=== PATIENT | male | born 1965 | race Caucasian/White ===

== ENCOUNTER 2018-11-19 11:32 | Inpatient (IN) | payer OTHER ==
[~2018-11-19 11:32] MED LIST: ETOMIDATE 20 MG INJ
[2018-11-19] MEDS ORDERED: niCARdipine-NS 0.1MG/ML DRIP 200 ML IV (11:50)
[2018-11-19 11:51] LABS: ADD MAN DIFF? NO
[2018-11-19 11:52] LABS: WHITE BLOOD COUNT 7.6 10^3/ul (4.8-10.8)
[2018-11-19 11:52] LABS: BASOPHILS % 0.3 % (0.0-2.0); EOSINOPHILS # 0.2 10^3/ul (0.0-0.5); EOSINOPHILS % 2.2 % (0.0-7.0); HEMATOCRIT 46.2 % (42.0-52.0); HEMOGLOBIN 15.6 g/dl (14.0-18.0); LYMPHOCYTES # 1.3 10^3/ul (0.8-2.9); LYMPHOCYTES % 16.9 % (15.0-51.0); MEAN CORPUSCULAR HEMOGLOBIN 30.8 pg (29.0-33.0); MEAN CORPUSCULAR HGB CONC 33.8 g/dl (32.0-37.0); MEAN CORPUSCULAR VOLUME 91.1 fl (82.0-101.0); MEAN PLATELET VOLUME 10.2 fl (7.4-10.4); MONOCYTE # 0.3 10^3/ul (0.3-0.9); MONOCYTES % 4.1 % (0.0-11.0); NEUTROPHIL # 5.8 10^3/ul (1.6-7.5); NEUTROPHILS % 75.8 % (39.0-77.0); PLATELET COUNT 269 10^3/UL (140-415); RED BLOOD COUNT 5.07 10^6/ul (4.70-6.10); RED CELL DISTRIBUTION WIDTH 12.4 % (11.5-14.5)
[2018-11-19] MEDS ORDERED: SOD CHLORIDE 0.9% IV (11:54)
[2018-11-19] MEDS ORDERED: NICARDIPINE IV (11:54)
[2018-11-19 12:02] LABS: HEMOGLOBIN A1C 5.5 % (0-5.9)
[2018-11-19] MEDS: niCARdipine 25 MG in SOD CHLORIDE 0.9% 240 ML IV ×2 (12:04→15:20)
[2018-11-19 12:10] LABS: ALANINE AMINOTRANSFERASE 19 IU/L (13-69); ALBUMIN 5.4 g/dl (3.3-4.9); ALBUMIN/GLOBULIN RATIO 1.63; ALKALINE PHOSPHATASE 78 IU/L (42-121); ANION GAP 12 (5-13); ASPARTATE AMINO TRANSFERASE 33 IU/L (15-46); BILIRUBIN,INDIRECT 0.5 mg/dl (0-1.1); BILIRUBIN,TOTAL 0.5 mg/dl (0.2-1.3); BLOOD UREA NITROGEN 12 mg/dl (7-20); CALCIUM 10.2 mg/dl (8.4-10.2); CARBON DIOXIDE 25 mmol/L (21-31); CHLORIDE 104 mmol/L (97-110); CHOL/HDL RATIO 4.2 RATIO; CHOLESTEROL 161 mg/dl (100-200); CREATINE KINASE 87 IU/L (23-200); CREATININE 0.81 mg/dl (0.61-1.24); ETHANOL < 10.0 mg/dl (0-0); Estimated GFR > 60 mL/min (>60); GLUCOSE 144 mg/dl (70-220); HDL CHOLESTEROL 38 mg/dl (28-71); LDL CHOLESTEROL,CALCULATED 83 mg/dl; POTASSIUM 4.1 mmol/L (3.5-5.1); SODIUM 141 mmol/L (135-144); TOTAL PROTEIN 8.7 g/dl (6.1-8.1); TRIGLYCERIDES 201 mg/dl (0-149)
[2018-11-19 12:14] LABS: INR 1.05; PROTIME 13.8 Sec (11.9-14.9); PT RATIO 1.1
[2018-11-19 12:15] LABS: PARTIAL THROMBOPLASTIN TIME 30.6 Sec (23.0-35.0)
[2018-11-19 12:22] LABS: CK INDEX 0.6; CK-MB 0.55 ng/ml (0.0-2.4); TROPONIN-I < 0.012 ng/ml (0.000-0.120)
[2018-11-19] MEDS ORDERED: MIDAZOLAM 1 MG/ML 2 ML INJ (12:41)
[2018-11-19] MEDS ORDERED: FENTAnyl 50 MCG/ML VIAL (12:41)
[2018-11-19] MEDS: FENTAnyl 50 MCG/ML VIAL IV (13:01)
[2018-11-19] MEDS: SOD CHLORIDE 0.9% 100 ML (13:01)
[2018-11-19] MEDS: IODIXANOL LOCM 100 ML BTL (13:01)
[2018-11-19] MEDS: MIDAZOLAM 1 MG/ML 2 ML INJ IV (13:01)
[2018-11-19] MEDS: ROCURONIUM 50 MG INJ IV (13:02)
[2018-11-19] MEDS: PROPOFOL 100 ML IV ×2 (13:05→21:00)
[2018-11-19] MEDS: ETOMIDATE 20 MG INJ IV (13:10)
[2018-11-19 13:23] LABS: AADO2 Arterial 404.2 mmHg (7.0-24.0); Allen Test ACCEPTAB; Arterial Base Excess 1.4 mmol/L (-3.0-3); Arterial Blood Gas Oxygen Sat 99.3 mmHG (95.0-98.0); Arterial COHb 1.7 % (0.0-3.0); Arterial Fraction of Oxyhgb 97.2 % (93.0-99.0); Arterial MetHb 0.4 % (0.0-1.5); Arterial pCO2 32.6 mmhg (35-45); MODE VENT - AC; Site Right Radial
[2018-11-19] MEDS ORDERED: ACETAMINOPHEN 325 MG TAB PO (13:30)
[2018-11-19] MEDS ORDERED: ONDANSETRON 4 MG INJ IV (13:30)
[2018-11-19] MEDS ORDERED: morphine 2 MG INJ IV (13:30)
[2018-11-19] MEDS ORDERED: ALBUTEROL/IPRATROPIUM (NEB) 3 ML AMP HHN (13:30)
[2018-11-19] MEDS ORDERED: LORAZEPAM 2 MG INJ IV (13:30)
[2018-11-19] MEDS ORDERED: NACL 0.9% 3 ML SYG IV (13:30)
[2018-11-19] MEDS ORDERED: NITROGLYCERIN (SL) 0.4 MG TAB SL (13:30)
[2018-11-19] MEDS ORDERED: DOCUSATE SODIUM 100 MG CAP PO (13:30)
[2018-11-19 13:49] LABS: INR 1.04; PROTIME 13.7 Sec (11.9-14.9); PT RATIO 1.1
[2018-11-19 13:54] LABS: HEMOGLOBIN A1C 5.5 % (0-5.9)
[2018-11-19] MEDS: SOD CHLORIDE 0.45% 1,000 ML IV (14:59)
[2018-11-19 15:18] LABS: FREE T4 (FREE THYROXINE) 0.98 ng/dl (0.64-1.79)
[2018-11-19] MEDS: niCARdipine-NS 0.1MG/ML DRIP 200 ML IV ×2 (16:16→23:07)
[2018-11-19] MEDS: FAMOTIDINE 20 MG INJ IV (20:36)
[2018-11-19] MEDS: NICOTINE (21 MG/24 HR) PATCH TRANSDERM (20:37)
[2018-11-19] MEDS: DOCUSATE SODIUM 100 MG CAP PO (21:00)
[2018-11-20] MEDS: SOD CHLORIDE 0.45% 1,000 ML IV ×2 (02:15→16:26)
[2018-11-20] MEDS: PROPOFOL 100 ML IV ×2 (03:15→21:00)
[2018-11-20] MEDS: niCARdipine-NS 0.1MG/ML DRIP 200 ML IV (04:09)
[2018-11-20] MEDS: niCARdipine 50 MG in SOD CHLORIDE 0.9% 480 ML IV ×4 (04:51→18:29)
[2018-11-20 05:29] LABS: ADD MAN DIFF? NO
[2018-11-20 05:37] LABS: BASOPHILS % 0.1 % (0.0-2.0); EOSINOPHILS # 0.2 10^3/ul (0.0-0.5); EOSINOPHILS % 1.1 % (0.0-7.0); HEMATOCRIT 43.2 % (42.0-52.0); HEMOGLOBIN 14.7 g/dl (14.0-18.0); LYMPHOCYTES # 1.7 10^3/ul (0.8-2.9); LYMPHOCYTES % 10.8 % (15.0-51.0); MEAN CORPUSCULAR HEMOGLOBIN 31.2 pg (29.0-33.0); MEAN CORPUSCULAR VOLUME 91.7 fl (82.0-101.0); MEAN PLATELET VOLUME 10.2 fl (7.4-10.4); MONOCYTE # 0.9 10^3/ul (0.3-0.9); MONOCYTES % 5.8 % (0.0-11.0); NEUTROPHIL # 12.4 10^3/ul (1.6-7.5); NEUTROPHILS % 81.8 % (39.0-77.0); PLATELET COUNT 271 10^3/UL (140-415); RED BLOOD COUNT 4.71 10^6/ul (4.70-6.10); RED CELL DISTRIBUTION WIDTH 12.6 % (11.5-14.5)
[2018-11-20 05:37] LABS: WHITE BLOOD COUNT 15.2 10^3/ul (4.8-10.8)
[2018-11-20 06:04] LABS: ADD UMIC YES; UR ASCORBIC ACID NEGATIVE (NEGATIVE); UR BILIRUBIN (Dip) NEGATIVE (NEGATIVE); UR BLOOD (Dip) 1+ mg/dL (NEGATIVE); UR CLARITY CLEAR (CLEAR); UR COLOR YELLOW (YELLOW); UR GLUCOSE (Dip) 1+ mg/dL (NEGATIVE); UR KETONES (Dip) 1+ mg/dL (NEGATIVE); UR LEUKOCYTE ESTERASE (Dip) NEGATIVE Leu/ul (NEGATIVE); UR MUCUS FEW /HPF (NONE SEEN); UR NITRITE (Dip) NEGATIVE (NEGATIVE); UR RBC 7 /HPF (0-5); UR SPECIFIC GRAVITY (Dip) 1.028 (1.003-1.030); UR TOTAL PROTEIN (Dip) NEGATIVE (NEGATIVE); UR UROBILINOGEN (Dip) NEGATIVE (NEGATIVE); UR WBC 2 /HPF (0-5)
[2018-11-20 06:12] LABS: ANION GAP 6 (5-13); BLOOD UREA NITROGEN 14 mg/dl (7-20); CALCIUM 9.3 mg/dl (8.4-10.2); CARBON DIOXIDE 26 mmol/L (21-31); CHLORIDE 107 mmol/L (97-110); CREATININE 0.89 mg/dl (0.61-1.24); Estimated GFR > 60 mL/min (>60); GLUCOSE 117 mg/dl (70-220); MAGNESIUM 1.8 mg/dl (1.7-2.5); PHOSPHORUS 3.3 mg/dl (2.5-4.9); POTASSIUM 3.4 mmol/L (3.5-5.1); SODIUM 139 mmol/L (135-144)
[2018-11-20 06:18] LABS: CHOL/HDL RATIO 4.8 RATIO; HDL CHOLESTEROL 29 mg/dl (28-71); LDL CHOLESTEROL,CALCULATED 60 mg/dl; TRIGLYCERIDES 253 mg/dl (0-149)
[2018-11-20 06:18] LABS: CHOLESTEROL 140 mg/dl (100-200)
[2018-11-20 06:32] LABS: AMPHETAMINE/METHAMPHETAMINE NEGATIVE (NEGATIVE); BARBITURATES NEGATIVE (NEGATIVE)
[2018-11-20 06:33] LABS: BENZODIAZEPINES POSITIVE (NEGATIVE); CANNABINOIDS NEGATIVE (NEGATIVE); COCAINE NEGATIVE (NEGATIVE); OPIATES NEGATIVE (NEGATIVE)
[2018-11-20 06:40] LABS: THYROID STIMULATING HORMONE 0.214 MIU/L (0.465-4.680)
[2018-11-20 06:52] LABS: HEMOGLOBIN A1C 5.4 % (0-5.9)
[2018-11-20] MEDS: DOCUSATE SODIUM 100 MG CAP PO ×2 (08:35→21:48)
[2018-11-20] MEDS: FAMOTIDINE 20 MG INJ IV ×2 (08:35→21:48)
[2018-11-20] MEDS: AMLODIPINE 10 MG TAB PO (08:35)
[2018-11-20] MEDS: NICOTINE (21 MG/24 HR) PATCH TRANSDERM (08:36)
[2018-11-20] MEDS: BENAZEPRIL 40 MG TAB PO (08:36)
[2018-11-20] MEDS: ACETAMINOPHEN 325 MG TAB PO ×2 (08:36→16:37)
[2018-11-20] MEDS: LORAZEPAM 2 MG INJ IV (21:49)
[2018-11-21 05:26] LABS: ADD MAN DIFF? NO
[2018-11-21 05:39] LABS: WHITE BLOOD COUNT 12.7 10^3/ul (4.8-10.8)
[2018-11-21 05:39] LABS: BASOPHILS % 0.2 % (0.0-2.0); EOSINOPHILS # 0.1 10^3/ul (0.0-0.5); EOSINOPHILS % 0.6 % (0.0-7.0); HEMATOCRIT 39.2 % (42.0-52.0); HEMOGLOBIN 13.1 g/dl (14.0-18.0); LYMPHOCYTES % 15.9 % (15.0-51.0); MEAN CORPUSCULAR HEMOGLOBIN 30.8 pg (29.0-33.0); MEAN CORPUSCULAR HGB CONC 33.4 g/dl (32.0-37.0); MEAN CORPUSCULAR VOLUME 92.2 fl (82.0-101.0); MEAN PLATELET VOLUME 10.2 fl (7.4-10.4); NEUTROPHIL # 9.5 10^3/ul (1.6-7.5); NEUTROPHILS % 74.8 % (39.0-77.0); PLATELET COUNT 232 10^3/UL (140-415); RED BLOOD COUNT 4.25 10^6/ul (4.70-6.10); RED CELL DISTRIBUTION WIDTH 12.7 % (11.5-14.5)
[2018-11-21 05:49] LABS: PHOSPHORUS 3.2 mg/dl (2.5-4.9)
[2018-11-21 05:49] LABS: ANION GAP 8 (5-13); BLOOD UREA NITROGEN 21 mg/dl (7-20); CALCIUM 8.9 mg/dl (8.4-10.2); CARBON DIOXIDE 23 mmol/L (21-31); CHLORIDE 105 mmol/L (97-110); CREATININE 0.75 mg/dl (0.61-1.24); Estimated GFR > 60 mL/min (>60); GLUCOSE 117 mg/dl (70-220); POTASSIUM 3.5 mmol/L (3.5-5.1); SODIUM 136 mmol/L (135-144)
[2018-11-21] MEDS: SOD CHLORIDE 0.45% 1,000 ML IV ×2 (05:57→19:53)
[2018-11-21] MEDS: ACETAMINOPHEN 325 MG TAB PO ×2 (06:16→16:31)
[2018-11-21] MEDS: hydrALAzine 20 MG INJ IV (06:17)
[2018-11-21 07:49] LABS: AADO2 Arterial 68.1 mmHg (7.0-24.0); Allen Test ACCEPTAB; Arterial Base Excess -0.2 mmol/L (-3.0-3); Arterial Blood Gas Oxygen Sat 97.9 mmHG (95.0-98.0); Arterial COHb 0.5 % (0.0-3.0); Arterial Fraction of Oxyhgb 97.1 % (93.0-99.0); Arterial HCO3 22.9 mmol/L (22.0-26.0); Arterial MetHb 0.3 % (0.0-1.5); Arterial pCO2 32.8 mmhg (35-45); MODE VENT - AC; Site Right Radial
[2018-11-21] MEDS: PROPOFOL 100 ML IV ×2 (09:00→20:25)
[2018-11-21] MEDS: BENAZEPRIL 40 MG TAB PO (09:34)
[2018-11-21] MEDS: DOCUSATE SODIUM 100 MG CAP PO ×2 (09:34→21:29)
[2018-11-21] MEDS: NICOTINE (21 MG/24 HR) PATCH TRANSDERM (09:34)
[2018-11-21] MEDS: AMLODIPINE 10 MG TAB PO (09:34)
[2018-11-21] MEDS: FAMOTIDINE 20 MG INJ IV (10:38)
[2018-11-21] MEDS: niCARdipine 50 MG in SOD CHLORIDE 0.9% 480 ML IV (15:58)
[2018-11-21] MEDS: FAMOTIDINE 20 MG TAB PO (21:29)
[2018-11-22] MEDS: niCARdipine 50 MG in SOD CHLORIDE 0.9% 480 ML IV (00:27)
[2018-11-22] MEDS: ACETAMINOPHEN 325 MG TAB PO (01:05)
[2018-11-22 05:33] LABS: ADD MAN DIFF? NO
[2018-11-22 05:35] LABS: BASOPHILS % 0.2 % (0.0-2.0); EOSINOPHILS # 0.1 10^3/ul (0.0-0.5); EOSINOPHILS % 0.7 % (0.0-7.0); HEMOGLOBIN 12.6 g/dl (14.0-18.0); LYMPHOCYTES # 1.6 10^3/ul (0.8-2.9); LYMPHOCYTES % 12.3 % (15.0-51.0); MEAN CORPUSCULAR HEMOGLOBIN 30.8 pg (29.0-33.0); MEAN CORPUSCULAR HGB CONC 33.2 g/dl (32.0-37.0); MEAN CORPUSCULAR VOLUME 92.9 fl (82.0-101.0); MONOCYTE # 1.2 10^3/ul (0.3-0.9); MONOCYTES % 8.6 % (0.0-11.0); NEUTROPHIL # 10.4 10^3/ul (1.6-7.5); NEUTROPHILS % 77.7 % (39.0-77.0); PLATELET COUNT 220 10^3/UL (140-415); RED BLOOD COUNT 4.09 10^6/ul (4.70-6.10); RED CELL DISTRIBUTION WIDTH 12.5 % (11.5-14.5)
[2018-11-22 05:35] LABS: WHITE BLOOD COUNT 13.4 10^3/ul (4.8-10.8)
[2018-11-22 05:57] LABS: ANION GAP 8 (5-13); BLOOD UREA NITROGEN 15 mg/dl (7-20); CALCIUM 8.7 mg/dl (8.4-10.2); CARBON DIOXIDE 26 mmol/L (21-31); CHLORIDE 102 mmol/L (97-110); CREATININE 0.74 mg/dl (0.61-1.24); Estimated GFR > 60 mL/min (>60); GLUCOSE 116 mg/dl (70-220); POTASSIUM 3.5 mmol/L (3.5-5.1); SODIUM 136 mmol/L (135-144)
[2018-11-22] MEDS: SOD CHLORIDE 0.45% 1,000 ML IV ×2 (07:47→20:55)
[2018-11-22] MEDS: BENAZEPRIL 40 MG TAB PO (08:09)
[2018-11-22] MEDS: FAMOTIDINE 20 MG TAB PO ×2 (08:10→20:46)
[2018-11-22] MEDS: AMLODIPINE 10 MG TAB PO (08:10)
[2018-11-22] MEDS: NICOTINE (21 MG/24 HR) PATCH TRANSDERM (08:10)
[2018-11-22] MEDS: PROPOFOL 100 ML IV ×2 (08:50→20:46)
[2018-11-22] MEDS: DOCUSATE SODIUM 100 MG CAP PO ×2 (09:00→20:47)
[2018-11-22] MEDS: hydrALAzine 20 MG INJ IV (18:38)
[2018-11-23] MEDS: hydrALAzine 20 MG INJ IV ×3 (03:41→18:04)
[2018-11-23] MEDS: ACETAMINOPHEN 325 MG TAB PO ×2 (04:28→17:52)
[2018-11-23 06:03] LABS: ADD MAN DIFF? NO
[2018-11-23 06:10] LABS: BASOPHILS % 0.3 % (0.0-2.0); EOSINOPHILS # 0.1 10^3/ul (0.0-0.5); EOSINOPHILS % 0.9 % (0.0-7.0); HEMATOCRIT 37.7 % (42.0-52.0); HEMOGLOBIN 12.3 g/dl (14.0-18.0); LYMPHOCYTES # 0.9 10^3/ul (0.8-2.9); LYMPHOCYTES % 7.2 % (15.0-51.0); MEAN CORPUSCULAR HEMOGLOBIN 30.4 pg (29.0-33.0); MEAN CORPUSCULAR HGB CONC 32.6 g/dl (32.0-37.0); MEAN CORPUSCULAR VOLUME 93.1 fl (82.0-101.0); MEAN PLATELET VOLUME 10.1 fl (7.4-10.4); MONOCYTES % 7.8 % (0.0-11.0); NEUTROPHIL # 10.4 10^3/ul (1.6-7.5); NEUTROPHILS % 83.2 % (39.0-77.0); PLATELET COUNT 219 10^3/UL (140-415); RED BLOOD COUNT 4.05 10^6/ul (4.70-6.10); RED CELL DISTRIBUTION WIDTH 12.8 % (11.5-14.5)
[2018-11-23 06:10] LABS: WHITE BLOOD COUNT 12.5 10^3/ul (4.8-10.8)
[2018-11-23 06:34] LABS: ANION GAP 8 (5-13); BLOOD UREA NITROGEN 15 mg/dl (7-20); CALCIUM 8.8 mg/dl (8.4-10.2); CARBON DIOXIDE 28 mmol/L (21-31); CHLORIDE 100 mmol/L (97-110); CREATININE 0.69 mg/dl (0.61-1.24); Estimated GFR > 60 mL/min (>60); GLUCOSE 145 mg/dl (70-220); POTASSIUM 3.6 mmol/L (3.5-5.1); SODIUM 136 mmol/L (135-144)
[2018-11-23 08:05] LABS: AADO2 Arterial 88.1 mmHg (7.0-24.0); Allen Test ACCEPTAB; Arterial Base Excess 2.7 mmol/L (-3.0-3); Arterial Blood Gas Oxygen Sat 96.2 mmHG (95.0-98.0); Arterial COHb 0.5 % (0.0-3.0); Arterial Fraction of Oxyhgb 95.2 % (93.0-99.0); Arterial HCO3 26.1 mmol/L (22.0-26.0); Arterial MetHb 0.5 % (0.0-1.5); Arterial pCO2 36.3 mmhg (35-45); MODE VENT - AC; Site Right Radial
[2018-11-23] MEDS: NICOTINE (21 MG/24 HR) PATCH TRANSDERM (08:29)
[2018-11-23] MEDS: FAMOTIDINE 20 MG TAB PO ×2 (08:29→21:22)
[2018-11-23] MEDS: BENAZEPRIL 40 MG TAB PO (08:29)
[2018-11-23] MEDS: AMLODIPINE 10 MG TAB PO (08:30)
[2018-11-23] MEDS: DOCUSATE SODIUM 100 MG CAP PO ×2 (08:30→21:22)
[2018-11-23] MEDS: PROPOFOL 100 ML IV ×2 (08:31→21:00)
[2018-11-23] MEDS: SOD CHLORIDE 0.45% 1,000 ML IV ×2 (10:19→23:09)
[2018-11-23] MEDS: morphine LIQ (10 MG/5 ML) CUP PO (21:23)
[2018-11-24 06:10] LABS: ADD MAN DIFF? NO
[2018-11-24 06:15] LABS: BASOPHILS % 0.3 % (0.0-2.0); EOSINOPHILS # 0.2 10^3/ul (0.0-0.5); EOSINOPHILS % 1.4 % (0.0-7.0); HEMATOCRIT 36.7 % (42.0-52.0); HEMOGLOBIN 11.9 g/dl (14.0-18.0); LYMPHOCYTES # 1.3 10^3/ul (0.8-2.9); LYMPHOCYTES % 11.9 % (15.0-51.0); MEAN CORPUSCULAR HEMOGLOBIN 30.4 pg (29.0-33.0); MEAN CORPUSCULAR HGB CONC 32.4 g/dl (32.0-37.0); MEAN CORPUSCULAR VOLUME 93.9 fl (82.0-101.0); MEAN PLATELET VOLUME 10.4 fl (7.4-10.4); MONOCYTE # 0.9 10^3/ul (0.3-0.9); MONOCYTES % 8.9 % (0.0-11.0); NEUTROPHIL # 8.1 10^3/ul (1.6-7.5); NEUTROPHILS % 76.9 % (39.0-77.0); PLATELET COUNT 239 10^3/UL (140-415); RED BLOOD COUNT 3.91 10^6/ul (4.70-6.10)
[2018-11-24 06:15] LABS: WHITE BLOOD COUNT 10.6 10^3/ul (4.8-10.8)
[2018-11-24 06:49] LABS: ANION GAP 11 (5-13); BLOOD UREA NITROGEN 19 mg/dl (7-20); CALCIUM 8.8 mg/dl (8.4-10.2); CARBON DIOXIDE 28 mmol/L (21-31); CHLORIDE 97 mmol/L (97-110); CREATININE 0.77 mg/dl (0.61-1.24); Estimated GFR > 60 mL/min (>60); GLUCOSE 124 mg/dl (70-220); POTASSIUM 3.9 mmol/L (3.5-5.1); SODIUM 136 mmol/L (135-144)
[2018-11-24] MEDS: FAMOTIDINE 20 MG TAB PO ×2 (08:08→20:37)
[2018-11-24] MEDS: AMLODIPINE 10 MG TAB PO (08:08)
[2018-11-24] MEDS: BENAZEPRIL 40 MG TAB PO (08:09)
[2018-11-24] MEDS: DOCUSATE SODIUM 100 MG CAP PO (08:09)
[2018-11-24] MEDS: NICOTINE (21 MG/24 HR) PATCH TRANSDERM (08:09)
[2018-11-24] MEDS: PROPOFOL 100 ML IV ×2 (08:44→21:00)
[2018-11-24] MEDS: ACETAMINOPHEN 325 MG TAB PO ×2 (10:25→16:15)
[2018-11-24] MEDS: SOD CHLORIDE 0.45% 1,000 ML IV (14:28)
[2018-11-24] MEDS: hydrALAzine 20 MG INJ IV (19:04)
[2018-11-24] MEDS: DOCUSATE SODIUM 10 MG/ML (10ML CUP) NGT (20:37)
[2018-11-24] MEDS: LABETALOL HCL 20MG INJ IV (20:37)
[2018-11-25] MEDS: LABETALOL HCL 20MG INJ IV ×2 (03:02→20:08)
[2018-11-25] MEDS: SOD CHLORIDE 0.45% 1,000 ML IV ×2 (03:32→16:16)
[2018-11-25] MEDS: niCARdipine 50 MG in SOD CHLORIDE 0.9% 480 ML IV (04:35)
[2018-11-25] MEDS: ACETAMINOPHEN 325 MG TAB PO (06:09)
[2018-11-25 06:28] LABS: ADD MAN DIFF? NO
[2018-11-25 06:45] LABS: BASOPHILS % 0.3 % (0.0-2.0); EOSINOPHILS # 0.2 10^3/ul (0.0-0.5); EOSINOPHILS % 1.4 % (0.0-7.0); HEMATOCRIT 35.5 % (42.0-52.0); HEMOGLOBIN 11.5 g/dl (14.0-18.0); LYMPHOCYTES % 8.3 % (15.0-51.0); MEAN CORPUSCULAR HEMOGLOBIN 30.7 pg (29.0-33.0); MEAN CORPUSCULAR HGB CONC 32.4 g/dl (32.0-37.0); MEAN CORPUSCULAR VOLUME 94.9 fl (82.0-101.0); MEAN PLATELET VOLUME 10.8 fl (7.4-10.4); MONOCYTE # 0.9 10^3/ul (0.3-0.9); MONOCYTES % 7.9 % (0.0-11.0); NEUTROPHIL # 9.6 10^3/ul (1.6-7.5); NEUTROPHILS % 81.6 % (39.0-77.0); PLATELET COUNT 264 10^3/UL (140-415); RED BLOOD COUNT 3.74 10^6/ul (4.70-6.10)
[2018-11-25 06:45] LABS: WHITE BLOOD COUNT 11.8 10^3/ul (4.8-10.8)
[2018-11-25 07:13] LABS: ANION GAP 9 (5-13); BLOOD UREA NITROGEN 20 mg/dl (7-20); CALCIUM 8.9 mg/dl (8.4-10.2); CARBON DIOXIDE 27 mmol/L (21-31); CHLORIDE 100 mmol/L (97-110); CREATININE 0.85 mg/dl (0.61-1.24); Estimated GFR > 60 mL/min (>60); GLUCOSE 188 mg/dl (70-220); SODIUM 136 mmol/L (135-144)
[2018-11-25 08:16] LABS: ADD UMIC YES; UR ASCORBIC ACID NEGATIVE (NEGATIVE); UR BILIRUBIN (Dip) NEGATIVE (NEGATIVE); UR BLOOD (Dip) 2+ mg/dL (NEGATIVE); UR CLARITY SLIGHTLY CLOUDY (CLEAR); UR COLOR YELLOW (YELLOW); UR GLUCOSE (Dip) 1+ mg/dL (NEGATIVE); UR KETONES (Dip) NEGATIVE (NEGATIVE); UR LEUKOCYTE ESTERASE (Dip) NEGATIVE Leu/ul (NEGATIVE); UR MUCUS FEW /HPF (NONE SEEN); UR NITRITE (Dip) NEGATIVE (NEGATIVE); UR RBC 28 /HPF (0-5); UR SPECIFIC GRAVITY (Dip) 1.013 (1.003-1.030); UR SQUAMOUS EPITHELIAL CELL FEW /HPF (FEW); UR TOTAL PROTEIN (Dip) NEGATIVE (NEGATIVE); UR UROBILINOGEN (Dip) 2+ mg/dL (NEGATIVE); UR WBC 3 /HPF (0-5)
[2018-11-25] MEDS: FAMOTIDINE 20 MG TAB PO ×2 (08:45→21:35)
[2018-11-25] MEDS: AMLODIPINE 10 MG TAB PO (08:45)
[2018-11-25] MEDS: DOCUSATE SODIUM 10 MG/ML (10ML CUP) NGT ×2 (08:45→21:35)
[2018-11-25] MEDS: BENAZEPRIL 40 MG TAB PO (08:46)
[2018-11-25] MEDS: NICOTINE (21 MG/24 HR) PATCH TRANSDERM (08:46)
[2018-11-25] MEDS: PROPOFOL 100 ML IV ×2 (09:00→21:00)
[2018-11-25] MEDS ORDERED: VANCOMYCIN IV PER PHARMACY XX (16:00)
[2018-11-25] MEDS: MAGNESIUM HYDROXIDE 30ML CUP PO (16:50)
[2018-11-25] MEDS: POLYETHYLENE GLYCOL 17 GM PACKET PO (16:50)
[2018-11-25] MEDS: VANCOMYCIN HCL 1.75 GM in SOD CHLORIDE 0.9% 500 ML IVPB (16:55)
[2018-11-25] MEDS: PIPER-TAZO 3.375 GM IV (PMX) 100 ML IVPB (17:04)
[2018-11-25] MEDS: hydrALAzine 20 MG INJ IV (17:04)
[2018-11-26] MEDS: ACETAMINOPHEN 325 MG TAB PO (00:38)
[2018-11-26] MEDS: PIPER-TAZO 3.375 GM IV (PMX) 100 ML IVPB ×3 (03:15→18:17)
[2018-11-26 05:00] LABS: ADD MAN DIFF? NO
[2018-11-26 05:07] LABS: WHITE BLOOD COUNT 10.2 10^3/ul (4.8-10.8)
[2018-11-26 05:07] LABS: BASOPHILS % 0.2 % (0.0-2.0); EOSINOPHILS # 0.3 10^3/ul (0.0-0.5); EOSINOPHILS % 2.4 % (0.0-7.0); HEMATOCRIT 33.8 % (42.0-52.0); HEMOGLOBIN 11.1 g/dl (14.0-18.0); LYMPHOCYTES # 1.1 10^3/ul (0.8-2.9); LYMPHOCYTES % 10.3 % (15.0-51.0); MEAN CORPUSCULAR HEMOGLOBIN 30.8 pg (29.0-33.0); MEAN CORPUSCULAR HGB CONC 32.8 g/dl (32.0-37.0); MEAN CORPUSCULAR VOLUME 93.9 fl (82.0-101.0); MEAN PLATELET VOLUME 10.4 fl (7.4-10.4); MONOCYTE # 0.8 10^3/ul (0.3-0.9); MONOCYTES % 7.9 % (0.0-11.0); NEUTROPHIL # 8.1 10^3/ul (1.6-7.5); NEUTROPHILS % 78.7 % (39.0-77.0); PLATELET COUNT 244 10^3/UL (140-415)
[2018-11-26 05:31] LABS: ANION GAP 6 (5-13); BLOOD UREA NITROGEN 20 mg/dl (7-20); CALCIUM 8.8 mg/dl (8.4-10.2); CARBON DIOXIDE 29 mmol/L (21-31); CHLORIDE 101 mmol/L (97-110); Estimated GFR > 60 mL/min (>60); GLUCOSE 171 mg/dl (70-220); POTASSIUM 4.4 mmol/L (3.5-5.1); SODIUM 136 mmol/L (135-144)
[2018-11-26] MEDS: VANCOMYCIN HCL 1.5 GM in SOD CHLORIDE 0.9% 250 ML IVPB ×2 (06:05→18:17)
[2018-11-26] MEDS: PROPOFOL 100 ML IV (09:00)
[2018-11-26] MEDS: POLYETHYLENE GLYCOL 17 GM PACKET PO ×2 (09:06→20:44)
[2018-11-26] MEDS: DOCUSATE SODIUM 10 MG/ML (10ML CUP) NGT ×2 (09:06→20:44)
[2018-11-26] MEDS: NICOTINE (21 MG/24 HR) PATCH TRANSDERM (09:07)
[2018-11-26] MEDS: BENAZEPRIL 40 MG TAB PO (09:07)
[2018-11-26] MEDS: FAMOTIDINE 20 MG TAB PO ×2 (09:07→20:44)
[2018-11-26] MEDS: AMLODIPINE 10 MG TAB PO (09:08)
[2018-11-26] MEDS: SOD CHLORIDE 0.45% 1,000 ML IV ×2 (09:09→13:08)
[2018-11-26] MEDS: BISACODYL 10 MG SUPP PR (13:08)
[2018-11-26] MEDS: hydrALAzine 20 MG INJ IV (19:28)
[2018-11-26] MEDS: HYDROCODONE/APAP (5/325) TAB PO (19:47)
[2018-11-26] MEDS: OCULAR LUBRICANT 3.5 GM OPH OINT BOTH EYES (20:44)
[2018-11-27] MEDS: LABETALOL HCL 20MG INJ IV ×5 (01:07→20:41)
[2018-11-27] MEDS: PIPER-TAZO 3.375 GM IV (PMX) 100 ML IVPB ×2 (02:01→09:26)
[2018-11-27] MEDS: hydrALAzine 20 MG INJ IV (02:06)
[2018-11-27 05:27] LABS: ADD MAN DIFF? NO
[2018-11-27 05:31] LABS: ABNORMAL IP MESSAGE 1; BASOPHILS % 0.3 % (0.0-2.0); EOSINOPHILS # 0.2 10^3/ul (0.0-0.5); EOSINOPHILS % 2.7 % (0.0-7.0); LYMPHOCYTES # 0.6 10^3/ul (0.8-2.9); LYMPHOCYTES % 7.3 % (15.0-51.0); MEAN CORPUSCULAR HEMOGLOBIN 31.2 pg (29.0-33.0); MEAN CORPUSCULAR HGB CONC 33.3 g/dl (32.0-37.0); MEAN CORPUSCULAR VOLUME 93.5 fl (82.0-101.0); MEAN PLATELET VOLUME 10.5 fl (7.4-10.4); MONOCYTE # 0.6 10^3/ul (0.3-0.9); MONOCYTES % 7.5 % (0.0-11.0); NEUTROPHIL # 6.4 10^3/ul (1.6-7.5); NEUTROPHILS % 81.3 % (39.0-77.0); PLATELET COUNT 266 10^3/UL (140-415); POSITIVE DIFF @See below; RED BLOOD COUNT 3.85 10^6/ul (4.70-6.10); RED CELL DISTRIBUTION WIDTH 12.7 % (11.5-14.5)
[2018-11-27 05:31] LABS: WHITE BLOOD COUNT 7.9 10^3/ul (4.8-10.8)
[2018-11-27 05:57] LABS: ANION GAP 8 (5-13); BLOOD UREA NITROGEN 18 mg/dl (7-20); CALCIUM 8.9 mg/dl (8.4-10.2); CARBON DIOXIDE 27 mmol/L (21-31); CHLORIDE 100 mmol/L (97-110); CREATININE 0.77 mg/dl (0.61-1.24); Estimated GFR > 60 mL/min (>60); GLUCOSE 146 mg/dl (70-220); POTASSIUM 4.4 mmol/L (3.5-5.1); SODIUM 135 mmol/L (135-144)
[2018-11-27] MEDS: SOD CHLORIDE 0.45% 1,000 ML IV (06:15)
[2018-11-27 06:44] LABS: VANCOMYCIN,TROUGH 8.2 ug/ml (10.0-20.0)
[2018-11-27] MEDS: VANCOMYCIN HCL 1.5 GM in SOD CHLORIDE 0.9% 250 ML IVPB (06:55)
[2018-11-27] MEDS: OCULAR LUBRICANT 3.5 GM OPH OINT BOTH EYES ×4 (08:33→20:27)
[2018-11-27] MEDS: DOCUSATE SODIUM 10 MG/ML (10ML CUP) NGT ×2 (08:33→20:24)
[2018-11-27] MEDS: BISACODYL 10 MG SUPP PR (08:34)
[2018-11-27] MEDS: AMLODIPINE 10 MG TAB PO (08:34)
[2018-11-27] MEDS: BENAZEPRIL 40 MG TAB PO (08:34)
[2018-11-27] MEDS: FAMOTIDINE 20 MG TAB PO ×2 (08:36→20:23)
[2018-11-27] MEDS: NICOTINE (21 MG/24 HR) PATCH TRANSDERM (08:36)
[2018-11-27] MEDS: ACETAMINOPHEN 325 MG TAB PO (08:55)
[2018-11-27] MEDS: CEFTRIAXONE 1 GM/50 ML (PMX) 50 ML IVPB (15:48)
[2018-11-27] MEDS: PROPOFOL 20 ML (17:23)
[2018-11-27] MEDS ORDERED: ROCURONIUM 50 MG INJ (18:34)
[2018-11-27] MEDS ORDERED: morphine 10 MG INJ IV (19:30)
[2018-11-27] MEDS ORDERED: HYDROmorphONE 0.5 MG/0.5 ML SYG IV ×3 (19:30)
[2018-11-27] MEDS ORDERED: morphine 2 MG INJ IV ×2 (19:30)
[2018-11-28] MEDS: ACETAMINOPHEN 325 MG TAB PO ×2 (00:52→10:35)
[2018-11-28] MEDS: SOD CHLORIDE 0.45% 1,000 ML IV ×2 (02:09→08:47)
[2018-11-28 05:44] LABS: ADD MAN DIFF? NO
[2018-11-28 06:03] LABS: WHITE BLOOD COUNT 7.3 10^3/ul (4.8-10.8)
[2018-11-28 06:03] LABS: BASOPHILS % 0.5 % (0.0-2.0); EOSINOPHILS # 0.3 10^3/ul (0.0-0.5); EOSINOPHILS % 3.6 % (0.0-7.0); HEMATOCRIT 33.1 % (42.0-52.0); HEMOGLOBIN 10.6 g/dl (14.0-18.0); LYMPHOCYTES # 1.1 10^3/ul (0.8-2.9); LYMPHOCYTES % 14.6 % (15.0-51.0); MEAN CORPUSCULAR HEMOGLOBIN 30.5 pg (29.0-33.0); MEAN CORPUSCULAR VOLUME 95.1 fl (82.0-101.0); MEAN PLATELET VOLUME 11.3 fl (7.4-10.4); MONOCYTE # 0.8 10^3/ul (0.3-0.9); MONOCYTES % 10.9 % (0.0-11.0); NEUTROPHIL # 5.1 10^3/ul (1.6-7.5); NEUTROPHILS % 69.4 % (39.0-77.0); PLATELET COUNT 282 10^3/UL (140-415); RED BLOOD COUNT 3.48 10^6/ul (4.70-6.10)
[2018-11-28 06:44] LABS: MAGNESIUM 2.2 mg/dl (1.7-2.5)
[2018-11-28 06:44] LABS: PHOSPHORUS 4.9 mg/dl (2.5-4.9)
[2018-11-28 06:58] LABS: ANION GAP 8 (5-13); BLOOD UREA NITROGEN 21 mg/dl (7-20); CALCIUM 8.8 mg/dl (8.4-10.2); CARBON DIOXIDE 27 mmol/L (21-31); CHLORIDE 101 mmol/L (97-110); CREATININE 0.75 mg/dl (0.61-1.24); Estimated GFR > 60 mL/min (>60); GLUCOSE 109 mg/dl (70-220); POTASSIUM 4.1 mmol/L (3.5-5.1); SODIUM 136 mmol/L (135-144)
[2018-11-28] MEDS: BENAZEPRIL 40 MG TAB PO (08:45)
[2018-11-28] MEDS: BISACODYL 10 MG SUPP PR (08:45)
[2018-11-28] MEDS: DOCUSATE SODIUM 10 MG/ML (10ML CUP) NGT ×2 (08:45→21:00)
[2018-11-28] MEDS: AMLODIPINE 10 MG TAB PO (08:46)
[2018-11-28] MEDS: FAMOTIDINE 20 MG TAB PO ×2 (08:46→21:00)
[2018-11-28] MEDS: OCULAR LUBRICANT 3.5 GM OPH OINT BOTH EYES ×4 (08:46→21:09)
[2018-11-28] MEDS: NICOTINE (21 MG/24 HR) PATCH TRANSDERM (08:47)
[2018-11-28] MEDS: LABETALOL HCL 20MG INJ IV ×2 (09:04→11:50)
[2018-11-28] MEDS: CEFTRIAXONE 1 GM/50 ML (PMX) 50 ML IVPB (13:36)
[2018-11-28] MEDS ORDERED: PROPOFOL 20 ML (20:21)
[2018-11-28] MEDS ORDERED: MIDAZOLAM 1 MG/ML 2 ML INJ (20:21)
[2018-11-28] MEDS ORDERED: LIDOCAINE 2% (SDV) 5 ML INJ (20:21)
[2018-11-28] MEDS ORDERED: FENTAnyl 50 MCG/ML VIAL (20:21)
[2018-11-28] MEDS ORDERED: CEFAZOLIN 1 GM INJ (20:21)
[2018-11-28] MEDS ORDERED: LIDOCAINE 1%/EPI (1:100,000) (MDV) 20 ML (20:29)
[2018-11-29] MEDS: hydrALAzine 20 MG INJ IV ×2 (00:11→08:05)
[2018-11-29] MEDS: SOD CHLORIDE 0.45% 1,000 ML IV ×2 (00:13→13:38)
[2018-11-29 04:56] LABS: ADD MAN DIFF? NO
[2018-11-29 05:05] LABS: BASOPHILS % 0.4 % (0.0-2.0); EOSINOPHILS # 0.2 10^3/ul (0.0-0.5); EOSINOPHILS % 2.8 % (0.0-7.0); HEMATOCRIT 34.7 % (42.0-52.0); HEMOGLOBIN 11.4 g/dl (14.0-18.0); LYMPHOCYTES # 0.9 10^3/ul (0.8-2.9); LYMPHOCYTES % 10.9 % (15.0-51.0); MEAN CORPUSCULAR HEMOGLOBIN 30.6 pg (29.0-33.0); MEAN CORPUSCULAR HGB CONC 32.9 g/dl (32.0-37.0); MEAN CORPUSCULAR VOLUME 93.3 fl (82.0-101.0); MEAN PLATELET VOLUME 10.6 fl (7.4-10.4); MONOCYTE # 0.8 10^3/ul (0.3-0.9); MONOCYTES % 9.2 % (0.0-11.0); NEUTROPHIL # 6.5 10^3/ul (1.6-7.5); NEUTROPHILS % 75.5 % (39.0-77.0); PLATELET COUNT 334 10^3/UL (140-415); RED BLOOD COUNT 3.72 10^6/ul (4.70-6.10); RED CELL DISTRIBUTION WIDTH 12.8 % (11.5-14.5)
[2018-11-29 05:05] LABS: WHITE BLOOD COUNT 8.6 10^3/ul (4.8-10.8)
[2018-11-29 05:27] LABS: ANION GAP 12 (5-13); BLOOD UREA NITROGEN 21 mg/dl (7-20); CALCIUM 8.9 mg/dl (8.4-10.2); CARBON DIOXIDE 24 mmol/L (21-31); CHLORIDE 101 mmol/L (97-110); CREATININE 0.73 mg/dl (0.61-1.24); Estimated GFR > 60 mL/min (>60); GLUCOSE 118 mg/dl (70-220); SODIUM 137 mmol/L (135-144)
[2018-11-29] MEDS: BENAZEPRIL 40 MG TAB PO (09:14)
[2018-11-29] MEDS: FAMOTIDINE 20 MG TAB PO ×2 (09:14→20:43)
[2018-11-29] MEDS: DOCUSATE SODIUM 10 MG/ML (10ML CUP) NGT ×2 (09:14→20:43)
[2018-11-29] MEDS: OCULAR LUBRICANT 3.5 GM OPH OINT BOTH EYES ×4 (09:14→20:43)
[2018-11-29] MEDS: BISACODYL 10 MG SUPP PR (09:15)
[2018-11-29] MEDS: AMLODIPINE 10 MG TAB PO (09:15)
[2018-11-29] MEDS: NICOTINE (21 MG/24 HR) PATCH TRANSDERM (09:16)
[2018-11-29] MEDS: CEFTRIAXONE 1 GM/50 ML (PMX) 50 ML IVPB (13:50)
[2018-11-30 07:08] LABS: ADD MAN DIFF? NO
[2018-11-30 07:17] LABS: WHITE BLOOD COUNT 8.9 10^3/ul (4.8-10.8)
[2018-11-30 07:17] LABS: BASOPHILS % 0.3 % (0.0-2.0); EOSINOPHILS # 0.4 10^3/ul (0.0-0.5); EOSINOPHILS % 4.4 % (0.0-7.0); HEMATOCRIT 35.4 % (42.0-52.0); HEMOGLOBIN 11.6 g/dl (14.0-18.0); LYMPHOCYTES # 1.2 10^3/ul (0.8-2.9); LYMPHOCYTES % 13.4 % (15.0-51.0); MEAN CORPUSCULAR HEMOGLOBIN 30.6 pg (29.0-33.0); MEAN CORPUSCULAR HGB CONC 32.8 g/dl (32.0-37.0); MEAN CORPUSCULAR VOLUME 93.4 fl (82.0-101.0); MEAN PLATELET VOLUME 10.5 fl (7.4-10.4); MONOCYTE # 0.8 10^3/ul (0.3-0.9); MONOCYTES % 8.6 % (0.0-11.0); NEUTROPHIL # 6.4 10^3/ul (1.6-7.5); NEUTROPHILS % 71.9 % (39.0-77.0); PLATELET COUNT 364 10^3/UL (140-415); RED BLOOD COUNT 3.79 10^6/ul (4.70-6.10)
[2018-11-30 07:42] LABS: PHOSPHORUS 3.8 mg/dl (2.5-4.9)
[2018-11-30 07:42] LABS: MAGNESIUM 2.4 mg/dl (1.7-2.5)
[2018-11-30 07:45] LABS: ANION GAP 5 (5-13); BLOOD UREA NITROGEN 21 mg/dl (7-20); CARBON DIOXIDE 30 mmol/L (21-31); CHLORIDE 103 mmol/L (97-110); CREATININE 0.71 mg/dl (0.61-1.24); Estimated GFR > 60 mL/min (>60); GLUCOSE 133 mg/dl (70-220); POTASSIUM 3.9 mmol/L (3.5-5.1); SODIUM 138 mmol/L (135-144)
[2018-11-30] MEDS: DOCUSATE SODIUM 10 MG/ML (10ML CUP) NGT ×2 (08:39→21:20)
[2018-11-30] MEDS: NICOTINE (21 MG/24 HR) PATCH TRANSDERM (08:39)
[2018-11-30] MEDS: BENAZEPRIL 40 MG TAB PO (08:39)
[2018-11-30] MEDS: BISACODYL 10 MG SUPP PR (08:39)
[2018-11-30] MEDS: AMLODIPINE 10 MG TAB PO (08:40)
[2018-11-30] MEDS: FAMOTIDINE 20 MG TAB PO ×2 (08:40→21:20)
[2018-11-30] MEDS: OCULAR LUBRICANT 3.5 GM OPH OINT BOTH EYES ×4 (09:00→21:21)
[2018-11-30] MEDS: CEFTRIAXONE 1 GM/50 ML (PMX) 50 ML IVPB (14:09)
[2018-11-30] MEDS: ACETAMINOPHEN 325 MG TAB PO (17:59)
[2018-12-01 06:06] LABS: ADD MAN DIFF? NO
[2018-12-01 06:28] LABS: BASOPHILS % 0.4 % (0.0-2.0); EOSINOPHILS # 0.4 10^3/ul (0.0-0.5); EOSINOPHILS % 4.2 % (0.0-7.0); LYMPHOCYTES # 1.2 10^3/ul (0.8-2.9); LYMPHOCYTES % 13.6 % (15.0-51.0); MEAN CORPUSCULAR HEMOGLOBIN 30.6 pg (29.0-33.0); MEAN CORPUSCULAR HGB CONC 32.4 g/dl (32.0-37.0); MEAN CORPUSCULAR VOLUME 94.7 fl (82.0-101.0); MEAN PLATELET VOLUME 10.3 fl (7.4-10.4); MONOCYTE # 0.7 10^3/ul (0.3-0.9); MONOCYTES % 7.3 % (0.0-11.0); NEUTROPHIL # 6.6 10^3/ul (1.6-7.5); NEUTROPHILS % 72.7 % (39.0-77.0); PLATELET COUNT 411 10^3/UL (140-415); RED BLOOD COUNT 3.59 10^6/ul (4.70-6.10); RED CELL DISTRIBUTION WIDTH 12.6 % (11.5-14.5)
[2018-12-01 06:49] LABS: ANION GAP 8 (5-13); BLOOD UREA NITROGEN 20 mg/dl (7-20); CALCIUM 9.1 mg/dl (8.4-10.2); CARBON DIOXIDE 29 mmol/L (21-31); CHLORIDE 101 mmol/L (97-110); CREATININE 0.76 mg/dl (0.61-1.24); Estimated GFR > 60 mL/min (>60); GLUCOSE 148 mg/dl (70-220); POTASSIUM 4.1 mmol/L (3.5-5.1); SODIUM 138 mmol/L (135-144)
[2018-12-01] MEDS: POLYETHYLENE GLYCOL 17 GM PACKET PO (09:16)
[2018-12-01] MEDS: AMLODIPINE 10 MG TAB PO (09:16)
[2018-12-01] MEDS: DOCUSATE SODIUM 10 MG/ML (10ML CUP) NGT ×2 (09:16→20:48)
[2018-12-01] MEDS: OCULAR LUBRICANT 3.5 GM OPH OINT BOTH EYES ×4 (09:16→20:50)
[2018-12-01] MEDS: BENAZEPRIL 40 MG TAB PO (09:17)
[2018-12-01] MEDS: FAMOTIDINE 20 MG TAB PO ×2 (09:17→20:48)
[2018-12-01] MEDS: BISACODYL 10 MG SUPP PR (12:30)
[2018-12-01] MEDS: NICOTINE (21 MG/24 HR) PATCH TRANSDERM (12:35)
[2018-12-01] MEDS: CEFTRIAXONE 1 GM/50 ML (PMX) 50 ML IVPB (13:22)
[2018-12-02 06:13] LABS: ADD MAN DIFF? NO
[2018-12-02 06:15] LABS: BASOPHILS % 0.3 % (0.0-2.0); EOSINOPHILS # 0.5 10^3/ul (0.0-0.5); EOSINOPHILS % 4.3 % (0.0-7.0); HEMATOCRIT 36.3 % (42.0-52.0); HEMOGLOBIN 11.8 g/dl (14.0-18.0); LYMPHOCYTES # 1.3 10^3/ul (0.8-2.9); LYMPHOCYTES % 11.3 % (15.0-51.0); MEAN CORPUSCULAR HEMOGLOBIN 30.8 pg (29.0-33.0); MEAN CORPUSCULAR HGB CONC 32.5 g/dl (32.0-37.0); MEAN CORPUSCULAR VOLUME 94.8 fl (82.0-101.0); MEAN PLATELET VOLUME 9.6 fl (7.4-10.4); MONOCYTE # 0.8 10^3/ul (0.3-0.9); MONOCYTES % 6.9 % (0.0-11.0); NEUTROPHIL # 8.9 10^3/ul (1.6-7.5); NEUTROPHILS % 75.8 % (39.0-77.0); PLATELET COUNT 478 10^3/UL (140-415); RED BLOOD COUNT 3.83 10^6/ul (4.70-6.10); RED CELL DISTRIBUTION WIDTH 12.9 % (11.5-14.5)
[2018-12-02 06:15] LABS: WHITE BLOOD COUNT 11.7 10^3/ul (4.8-10.8)
[2018-12-02 06:44] LABS: ANION GAP 8 (5-13); BLOOD UREA NITROGEN 22 mg/dl (7-20); CALCIUM 9.5 mg/dl (8.4-10.2); CARBON DIOXIDE 30 mmol/L (21-31); CHLORIDE 101 mmol/L (97-110); Estimated GFR > 60 mL/min (>60); GLUCOSE 167 mg/dl (70-220); POTASSIUM 4.4 mmol/L (3.5-5.1); SODIUM 139 mmol/L (135-144)
[2018-12-02 06:45] LABS: MAGNESIUM 2.3 mg/dl (1.7-2.5)
[2018-12-02 06:45] LABS: PHOSPHORUS 3.9 mg/dl (2.5-4.9)
[2018-12-02] MEDS: BISACODYL 10 MG SUPP PR (09:00)
[2018-12-02] MEDS: DOCUSATE SODIUM 10 MG/ML (10ML CUP) NGT ×2 (09:45→22:16)
[2018-12-02] MEDS: NICOTINE (21 MG/24 HR) PATCH TRANSDERM (09:45)
[2018-12-02] MEDS: AMLODIPINE 10 MG TAB PO (09:46)
[2018-12-02] MEDS: FAMOTIDINE 20 MG TAB PO ×2 (09:46→22:17)
[2018-12-02] MEDS: BENAZEPRIL 40 MG TAB PO (09:46)
[2018-12-02] MEDS: OCULAR LUBRICANT 3.5 GM OPH OINT BOTH EYES ×4 (09:47→22:17)
[2018-12-02] MEDS: CEFTRIAXONE 1 GM/50 ML (PMX) 50 ML IVPB (14:18)
[2018-12-03 06:05] LABS: ADD MAN DIFF? NO
[2018-12-03 06:12] LABS: BASOPHILS % 0.4 % (0.0-2.0); EOSINOPHILS # 0.5 10^3/ul (0.0-0.5); HEMOGLOBIN 11.3 g/dl (14.0-18.0); LYMPHOCYTES # 1.3 10^3/ul (0.8-2.9); LYMPHOCYTES % 13.5 % (15.0-51.0); MEAN CORPUSCULAR HEMOGLOBIN 30.2 pg (29.0-33.0); MEAN CORPUSCULAR HGB CONC 31.4 g/dl (32.0-37.0); MEAN CORPUSCULAR VOLUME 96.3 fl (82.0-101.0); MEAN PLATELET VOLUME 10.1 fl (7.4-10.4); MONOCYTE # 0.7 10^3/ul (0.3-0.9); NEUTROPHIL # 6.9 10^3/ul (1.6-7.5); NEUTROPHILS % 72.5 % (39.0-77.0); PLATELET COUNT 456 10^3/UL (140-415); RED BLOOD COUNT 3.74 10^6/ul (4.70-6.10); RED CELL DISTRIBUTION WIDTH 12.8 % (11.5-14.5)
[2018-12-03 06:12] LABS: WHITE BLOOD COUNT 9.5 10^3/ul (4.8-10.8)
[2018-12-03 06:43] LABS: ANION GAP 11 (5-13); BLOOD UREA NITROGEN 23 mg/dl (7-20); CALCIUM 9.7 mg/dl (8.4-10.2); CARBON DIOXIDE 29 mmol/L (21-31); CHLORIDE 103 mmol/L (97-110); Estimated GFR > 60 mL/min (>60); GLUCOSE 152 mg/dl (70-220); POTASSIUM 4.4 mmol/L (3.5-5.1); SODIUM 143 mmol/L (135-144)
[2018-12-03] MEDS: OCULAR LUBRICANT 3.5 GM OPH OINT BOTH EYES ×4 (08:32→21:57)
[2018-12-03] MEDS: BENAZEPRIL 40 MG TAB PO (08:32)
[2018-12-03] MEDS: hydrALAzine 20 MG INJ IV (08:32)
[2018-12-03] MEDS: ACETAMINOPHEN 325 MG TAB PO (08:32)
[2018-12-03] MEDS: DOCUSATE SODIUM 10 MG/ML (10ML CUP) NGT ×2 (08:32→21:57)
[2018-12-03] MEDS: BISACODYL 10 MG SUPP PR (08:33)
[2018-12-03] MEDS: FAMOTIDINE 20 MG TAB PO ×2 (08:33→21:58)
[2018-12-03] MEDS: AMLODIPINE 10 MG TAB PO (08:33)
[2018-12-03] MEDS: NICOTINE (21 MG/24 HR) PATCH TRANSDERM (08:49)
[2018-12-03] MEDS: CEFTRIAXONE 1 GM/50 ML (PMX) 50 ML IVPB (13:20)
[2018-12-04 08:16] LABS: MAGNESIUM 2.3 mg/dl (1.7-2.5)
[2018-12-04 08:16] LABS: PHOSPHORUS 4.6 mg/dl (2.5-4.9)
[2018-12-04] MEDS: DOCUSATE SODIUM 10 MG/ML (10ML CUP) NGT ×2 (09:00→21:19)
[2018-12-04] MEDS: BISACODYL 10 MG SUPP PR (09:00)
[2018-12-04] MEDS: OCULAR LUBRICANT 3.5 GM OPH OINT BOTH EYES ×4 (09:47→21:19)
[2018-12-04] MEDS: AMLODIPINE 10 MG TAB PO (09:48)
[2018-12-04] MEDS: NICOTINE (21 MG/24 HR) PATCH TRANSDERM (09:48)
[2018-12-04] MEDS: hydrALAzine 20 MG INJ IV (09:49)
[2018-12-04] MEDS: BENAZEPRIL 40 MG TAB PO (09:49)
[2018-12-04] MEDS: FAMOTIDINE 20 MG TAB PO ×2 (09:49→21:19)
[2018-12-04] MEDS: CEFTRIAXONE 1 GM/50 ML (PMX) 50 ML IVPB (13:20)
[2018-12-04] MEDS: ACETAMINOPHEN 325 MG TAB PO (17:02)
[2018-12-05] MEDS: ACETAMINOPHEN 325 MG TAB PO (04:59)
[2018-12-05] MEDS: BISACODYL 10 MG SUPP PR (09:51)
[2018-12-05] MEDS: DOCUSATE SODIUM 10 MG/ML (10ML CUP) NGT (09:51)
[2018-12-05] MEDS: FAMOTIDINE 20 MG TAB PO (09:52)
[2018-12-05] MEDS: BENAZEPRIL 40 MG TAB PO (09:52)
[2018-12-05] MEDS: AMLODIPINE 10 MG TAB PO (09:52)
[2018-12-05] MEDS: NICOTINE (21 MG/24 HR) PATCH TRANSDERM (09:55)
[2018-12-05] MEDS: OCULAR LUBRICANT 3.5 GM OPH OINT BOTH EYES ×3 (09:56→16:51)
[2018-12-05] MEDS: CEFTRIAXONE 1 GM/50 ML (PMX) 50 ML IVPB (13:50)
== END 2018-12-05 18:29 | DRG 4 ==
LOC: TEL 11-29 21:27 → E/R 11:32 → ICU 13:13
PROC: 0B110F4 Bypass Trachea to Cutaneous with Tracheostomy Device, Open Approach (ICD-10-PCS; principal; 2018-11-27 18:25)
PROC: 5A1955Z Respiratory Ventilation, Greater than 96 Consecutive Hours (ICD-10-PCS; 2018-11-27 18:25)
PROC: 0BH17EZ Insertion of Endotracheal Airway into Trachea, Via Natural or Artificial Opening (ICD-10-PCS; 2018-11-27 18:25)
PROC: 0DH63UZ Insertion of Feeding Device into Stomach, Percutaneous Approach (ICD-10-PCS; 2018-11-27 18:25)
PROC: 3E0G76Z Introduction of Nutritional Substance into Upper GI, Via Natural or Artificial Opening (ICD-10-PCS; 2018-11-27 18:25)
DX: I61.3 Nontraumatic intracerebral hemorrhage in brain stem (principal); G93.6 Cerebral edema; J96.00 Acute respiratory failure, unspecified whether with hypoxia or hypercapnia; I16.1 Hypertensive emergency; G93.40 Encephalopathy, unspecified; G91.9 Hydrocephalus, unspecified; R40.20 Unspecified coma; H53.8 Other visual disturbances; F17.200 Nicotine dependence, unspecified, uncomplicated; R13.10 Dysphagia, unspecified; R50.9 Fever, unspecified; R53.1 Weakness
CPT/HCPCS: 36600; 70450; 70496; 70498; 71045; 80048; 80053; 80061; 80202; 80307; 81001; 82550; 82553; 82803; 83036; 83735; 84100; 84439; 84443; 84484; 85025; 85610; 85730; 86850; 86900; 86901; 87040; 87070; 87081; 87086; 89220; 93005; 94002; 94003; 94770; 95819; 96365; 97110; 97161; 99291-25

== ENCOUNTER 2019-03-16 17:04 | Emergency (ER) | payer OTHER ==
[2019-03-16] MEDS: NICARDipine HCL 30 MG CAPSULE PO (18:56)
== END 2019-03-16 20:42 | disposition home or self-care (01) ==
LOC: E/R 17:04
DX: I10 Essential (primary) hypertension (principal); Z87.891 Personal history of nicotine dependence
CPT/HCPCS: 99283; Z7502

== ENCOUNTER 2019-06-06 11:18 | Inpatient (IN) | payer OTHER ==
[2019-06-06] MEDS ORDERED: ASPIRIN 325 MG TAB PO (11:29)
[2019-06-06 11:44] LABS: ADD MAN DIFF? NO
[2019-06-06 11:51] LABS: WHITE BLOOD COUNT 8.1 10^3/ul (4.8-10.8)
[2019-06-06 11:51] LABS: BASOPHILS % 0.2 % (0.0-2.0); EOSINOPHILS # 0.2 10^3/ul (0.0-0.5); EOSINOPHILS % 2.1 % (0.0-7.0); HEMATOCRIT 40.5 % (42.0-52.0); HEMOGLOBIN 13.2 g/dl (14.0-18.0); LYMPHOCYTES # 1.9 10^3/ul (0.8-2.9); LYMPHOCYTES % 23.4 % (15.0-51.0); MEAN CORPUSCULAR HEMOGLOBIN 30.2 pg (29.0-33.0); MEAN CORPUSCULAR HGB CONC 32.6 g/dl (32.0-37.0); MEAN CORPUSCULAR VOLUME 92.7 fl (82.0-101.0); MEAN PLATELET VOLUME 10.3 fl (7.4-10.4); MONOCYTE # 0.5 10^3/ul (0.3-0.9); MONOCYTES % 5.8 % (0.0-11.0); NEUTROPHIL # 5.5 10^3/ul (1.6-7.5); PLATELET COUNT 282 10^3/UL (140-415); RED BLOOD COUNT 4.37 10^6/ul (4.70-6.10); RED CELL DISTRIBUTION WIDTH 13.6 % (11.5-14.5)
[2019-06-06 12:11] LABS: ANION GAP 10 (5-13); BLOOD UREA NITROGEN 14 mg/dl (7-20); CALCIUM 10.3 mg/dl (8.4-10.2); CARBON DIOXIDE 26 mmol/L (21-31); CHLORIDE 104 mmol/L (97-110); CHOL/HDL RATIO 6.8 RATIO; CHOLESTEROL 213 mg/dl (100-200); CREATININE 0.85 mg/dl (0.61-1.24); Estimated GFR > 60 mL/min (>60); GLUCOSE 184 mg/dl (70-220); HDL CHOLESTEROL 31 mg/dl (28-71); SODIUM 140 mmol/L (135-144)
[2019-06-06 12:12] LABS: INR 1.07; PARTIAL THROMBOPLASTIN TIME 33.9 Sec (23.0-35.0); PT RATIO 1.1
[2019-06-06 12:21] LABS: TROPONIN-I < 0.012 ng/ml (0.000-0.120)
[2019-06-06 12:30] LABS: HEMOGLOBIN A1C 6.3 % (0-5.9)
[2019-06-06 12:46] LABS: LDL CHOLESTEROL,CALCULATED 70 mg/dl; TRIGLYCERIDES 562 mg/dl (0-149)
[2019-06-06] MEDS ORDERED: ONDANSETRON 4 MG INJ IV ×2 (14:00→16:00)
[2019-06-06] MEDS ORDERED: ACETAMINOPHEN 325 MG TAB PO ×2 (14:00→16:00)
[2019-06-06] MEDS ORDERED: morphine 2 MG INJ IV (16:00)
[2019-06-06] MEDS ORDERED: HYDROCODONE/APAP (5/325) TAB PO (16:00)
[2019-06-06] MEDS ORDERED: MAGNESIUM HYDROXIDE 30ML CUP PO (16:00)
[2019-06-06] MEDS ORDERED: NACL 0.9% 3 ML SYG IV (16:00)
[2019-06-06] MEDS ORDERED: hydrOXYzine HCL 25 MG TAB PO (16:00)
[2019-06-07 04:16] LABS: ADD UMIC YES; UR ASCORBIC ACID 40 mg/dL (NEGATIVE); UR BACTERIA FEW /HPF (NONE SEEN); UR BILIRUBIN (Dip) NEGATIVE (NEGATIVE); UR BLOOD (Dip) NEGATIVE (NEGATIVE); UR CLARITY CLOUDY (CLEAR); UR COLOR YELLOW (YELLOW); UR GLUCOSE (Dip) NEGATIVE (NEGATIVE); UR KETONES (Dip) NEGATIVE (NEGATIVE); UR LEUKOCYTE ESTERASE (Dip) 2+ Leu/ul (NEGATIVE); UR MUCUS FEW /HPF (NONE SEEN); UR NITRITE (Dip) NEGATIVE (NEGATIVE); UR RBC 4 /HPF (0-5); UR SPECIFIC GRAVITY (Dip) 1.016 (1.003-1.030); UR SQUAMOUS EPITHELIAL CELL FEW /HPF (FEW); UR TOTAL PROTEIN (Dip) NEGATIVE (NEGATIVE); UR UROBILINOGEN (Dip) NEGATIVE (NEGATIVE); UR WBC 79 /HPF (0-5)
[2019-06-07 04:21] LABS: AMPHETAMINE/METHAMPHETAMINE Negative (NEGATIVE); BARBITURATES Negative (NEGATIVE); BENZODIAZEPINES Negative (NEGATIVE); CANNABINOIDS Negative (NEGATIVE); COCAINE Negative (NEGATIVE); OPIATES Negative (NEGATIVE)
[2019-06-07] MEDS: PANTOPRAZOLE 40 MG INJ IV (05:30)
[2019-06-07 08:05] LABS: ADD MAN DIFF? NO
[2019-06-07 08:11] LABS: WHITE BLOOD COUNT 6.7 10^3/ul (4.8-10.8)
[2019-06-07 08:11] LABS: BASOPHILS % 0.1 % (0.0-2.0); EOSINOPHILS # 0.1 10^3/ul (0.0-0.5); EOSINOPHILS % 1.9 % (0.0-7.0); HEMATOCRIT 40.5 % (42.0-52.0); HEMOGLOBIN 13.2 g/dl (14.0-18.0); LYMPHOCYTES # 1.7 10^3/ul (0.8-2.9); LYMPHOCYTES % 24.7 % (15.0-51.0); MEAN CORPUSCULAR HEMOGLOBIN 30.5 pg (29.0-33.0); MEAN CORPUSCULAR HGB CONC 32.6 g/dl (32.0-37.0); MEAN CORPUSCULAR VOLUME 93.5 fl (82.0-101.0); MEAN PLATELET VOLUME 10.2 fl (7.4-10.4); MONOCYTE # 0.4 10^3/ul (0.3-0.9); MONOCYTES % 6.5 % (0.0-11.0); NEUTROPHIL # 4.5 10^3/ul (1.6-7.5); NEUTROPHILS % 66.4 % (39.0-77.0); PLATELET COUNT 263 10^3/UL (140-415); RED BLOOD COUNT 4.33 10^6/ul (4.70-6.10); RED CELL DISTRIBUTION WIDTH 13.6 % (11.5-14.5)
[2019-06-07 08:22] LABS: HEMOGLOBIN A1C 6.3 % (0-5.9)
[2019-06-07 08:33] LABS: ALANINE AMINOTRANSFERASE 30 IU/L (13-69); ALBUMIN 4.3 g/dl (3.3-4.9); ALBUMIN/GLOBULIN RATIO 1.26; ALKALINE PHOSPHATASE 69 IU/L (42-121); ANION GAP 7 (5-13); ASPARTATE AMINO TRANSFERASE 25 IU/L (15-46); BILIRUBIN,INDIRECT 0.4 mg/dl (0-1.1); BILIRUBIN,TOTAL 0.4 mg/dl (0.2-1.3); BLOOD UREA NITROGEN 13 mg/dl (7-20); CARBON DIOXIDE 29 mmol/L (21-31); CHLORIDE 105 mmol/L (97-110); CHOL/HDL RATIO 7.2 RATIO; CHOLESTEROL 202 mg/dl (100-200); CREATININE 0.85 mg/dl (0.61-1.24); Estimated GFR > 60 mL/min (>60); GLUCOSE 145 mg/dl (70-220); HDL CHOLESTEROL 28 mg/dl (28-71); LDL CHOLESTEROL,CALCULATED 81 mg/dl; MAGNESIUM 1.8 mg/dl (1.7-2.5); PHOSPHORUS 3.8 mg/dl (2.5-4.9); POTASSIUM 3.9 mmol/L (3.5-5.1); SODIUM 141 mmol/L (135-144); TOTAL PROTEIN 7.7 g/dl (6.1-8.1); TRIGLYCERIDES 465 mg/dl (0-149)
[2019-06-07 08:50] LABS: FREE THYROXINE INDEX (Calc) 2.11 ug/ml (0.65-3.89); T3 UPTAKE 27.4 % (23.5-40.5); T4 (THYROXINE) 7.7 ug/dl (5.5-11.0)
[2019-06-07] MEDS: DOCUSATE SODIUM 100 MG CAP PO (09:09)
[2019-06-07] MEDS: ASCORBIC ACID 500 MG TAB PO (09:09)
[2019-06-07] MEDS: AMLODIPINE 10 MG TAB PO (09:09)
[2019-06-07] MEDS: FENOFIBRATE 145 MG TAB PO (09:09)
[2019-06-08] MEDS: PANTOPRAZOLE (EC) 40 MG TAB PO (05:38)
[2019-06-08] MEDS: DOCUSATE SODIUM 100 MG CAP PO (09:00)
[2019-06-08] MEDS: ASCORBIC ACID 500 MG TAB PO (09:07)
[2019-06-08] MEDS: FENOFIBRATE 145 MG TAB PO (09:07)
[2019-06-08] MEDS: AMLODIPINE 10 MG TAB PO (09:07)
[2019-06-09] MEDS: PANTOPRAZOLE (EC) 40 MG TAB PO ×2 (05:24→05:28)
[2019-06-09] MEDS: DOCUSATE SODIUM 100 MG CAP PO (09:00)
[2019-06-09] MEDS: ASCORBIC ACID 500 MG TAB PO (09:00)
[2019-06-09] MEDS: AMLODIPINE 10 MG TAB PO (09:00)
[2019-06-09] MEDS: FENOFIBRATE 145 MG TAB PO (09:00)
[2019-06-09] MEDS ORDERED: GLUCOSE GEL 15 GRAM TUBE BUCCAL (19:00)
[2019-06-09] MEDS ORDERED: DEXTROSE 50% 50 ML SYRINGE IV ×2 (19:00)
[2019-06-09] MEDS ORDERED: GLUCOSE GEL 15 GRAM TUBE PO ×2 (19:00)
[2019-06-09] MEDS ORDERED: GLUCAGON 1 MG INJ IM (19:00)
[2019-06-09] MEDS: INSULIN ASPART [NOVOLOG] 3 ML PEN SC (21:00)
[2019-06-09] MEDS: ACCU-CHEK XX (21:37)
[2019-06-10] MEDS: PANTOPRAZOLE (EC) 40 MG TAB PO (05:39)
[2019-06-10 07:34] LABS: ADD MAN DIFF? NO
[2019-06-10 07:46] LABS: BASOPHILS % 0.2 % (0.0-2.0); EOSINOPHILS # 0.2 10^3/ul (0.0-0.5); EOSINOPHILS % 1.8 % (0.0-7.0); HEMATOCRIT 41.3 % (42.0-52.0); HEMOGLOBIN 13.5 g/dl (14.0-18.0); LYMPHOCYTES # 2.3 10^3/ul (0.8-2.9); LYMPHOCYTES % 27.8 % (15.0-51.0); MEAN CORPUSCULAR HEMOGLOBIN 30.3 pg (29.0-33.0); MEAN CORPUSCULAR HGB CONC 32.7 g/dl (32.0-37.0); MEAN CORPUSCULAR VOLUME 92.6 fl (82.0-101.0); MEAN PLATELET VOLUME 10.8 fl (7.4-10.4); MONOCYTE # 0.5 10^3/ul (0.3-0.9); MONOCYTES % 6.2 % (0.0-11.0); NEUTROPHIL # 5.2 10^3/ul (1.6-7.5); NEUTROPHILS % 63.5 % (39.0-77.0); PLATELET COUNT 259 10^3/UL (140-415); RED BLOOD COUNT 4.46 10^6/ul (4.70-6.10); RED CELL DISTRIBUTION WIDTH 13.6 % (11.5-14.5)
[2019-06-10 07:46] LABS: WHITE BLOOD COUNT 8.2 10^3/ul (4.8-10.8)
[2019-06-10 08:08] LABS: ANION GAP 12 (5-13); BLOOD UREA NITROGEN 14 mg/dl (7-20); CALCIUM 10.4 mg/dl (8.4-10.2); CARBON DIOXIDE 25 mmol/L (21-31); CHLORIDE 103 mmol/L (97-110); CREATININE 0.83 mg/dl (0.61-1.24); Estimated GFR > 60 mL/min (>60); GLUCOSE 127 mg/dl (70-220); SODIUM 140 mmol/L (135-144)
[2019-06-10 08:09] LABS: POTASSIUM 4.2 mmol/L (3.5-5.1)
[2019-06-10] MEDS: AMLODIPINE 10 MG TAB PO (08:33)
[2019-06-10] MEDS: DOCUSATE SODIUM 100 MG CAP PO (08:33)
[2019-06-10] MEDS: ASCORBIC ACID 500 MG TAB PO (08:33)
[2019-06-10] MEDS: FENOFIBRATE 145 MG TAB PO (08:33)
[2019-06-10] MEDS: INSULIN ASPART [NOVOLOG] 3 ML PEN SC ×4 (08:35→20:36)
[2019-06-11] MEDS: ACCU-CHEK XX (02:00)
[2019-06-11] MEDS: PANTOPRAZOLE (EC) 40 MG TAB PO (05:47)
[2019-06-11] MEDS: INSULIN ASPART [NOVOLOG] 3 ML PEN SC ×2 (07:55→11:50)
[2019-06-11] MEDS: DOCUSATE SODIUM 100 MG CAP PO (09:00)
[2019-06-11] MEDS: ASCORBIC ACID 500 MG TAB PO (09:26)
[2019-06-11] MEDS: FENOFIBRATE 145 MG TAB PO (09:26)
[2019-06-11] MEDS: AMLODIPINE 10 MG TAB PO (09:27)
[2019-06-11] MEDS: ATORVASTATIN 40 MG TAB PO (20:55)
== END 2019-06-11 22:30 | DRG 57 ==
LOC: E/R 11:18 → TEL 12:59
DX: I69.351 Hemiplegia and hemiparesis following cerebral infarction affecting right dominant side (principal); Z87.891 Personal history of nicotine dependence; E78.1 Pure hyperglyceridemia; I10 Essential (primary) hypertension; R26.89 Other abnormalities of gait and mobility; R73.03 Prediabetes
CPT/HCPCS: 36415; 70450; 70553; 71045; 80048; 80053; 80061; 80307; 81001; 82962; 83036; 83735; 84100; 84436; 84443; 84479; 84484; 85025; 85610; 85730; 92523; 92610; 93005; 93306; 97110; 97116; 97162; 97165; 97530; 99285-25

== ENCOUNTER 2019-06-11 22:38 | Inpatient (IN) | payer OTHER ==
[2019-06-12] MEDS ORDERED: ACETAMINOPHEN 325 MG TAB PO ×2 (01:00)
[2019-06-12] MEDS ORDERED: MAGNESIUM HYDROXIDE 30ML CUP PO (01:00)
[2019-06-12] MEDS ORDERED: PENDING SANTYL ORDER FOR WOUND CARE XX (01:00)
[2019-06-12] MEDS ORDERED: BISACODYL 10 MG SUPP PR (01:00)
[2019-06-12 04:35] LABS: ADD UMIC YES; UR ASCORBIC ACID NEGATIVE (NEGATIVE); UR BACTERIA MODERATE /HPF (NONE SEEN); UR BILIRUBIN (Dip) NEGATIVE (NEGATIVE); UR BLOOD (Dip) NEGATIVE (NEGATIVE); UR CLARITY SLIGHTLY CLOUDY (CLEAR); UR COLOR YELLOW (YELLOW); UR GLUCOSE (Dip) NEGATIVE (NEGATIVE); UR KETONES (Dip) NEGATIVE (NEGATIVE); UR LEUKOCYTE ESTERASE (Dip) 3+ Leu/ul (NEGATIVE); UR NITRITE (Dip) POSITIVE (NEGATIVE); UR RBC 2 /HPF (0-5); UR SPECIFIC GRAVITY (Dip) 1.006 (1.003-1.030); UR TOTAL PROTEIN (Dip) NEGATIVE (NEGATIVE); UR UROBILINOGEN (Dip) NEGATIVE (NEGATIVE); UR WBC 13 /HPF (0-5)
[2019-06-12] MEDS: PANTOPRAZOLE (EC) 40 MG TAB PO (06:00)
[2019-06-12 06:32] LABS: ADD MAN DIFF? NO
[2019-06-12 06:39] LABS: BASOPHILS % 0.3 % (0.0-2.0); EOSINOPHILS # 0.2 10^3/ul (0.0-0.5); EOSINOPHILS % 2.6 % (0.0-7.0); HEMOGLOBIN 13.5 g/dl (14.0-18.0); LYMPHOCYTES # 2.1 10^3/ul (0.8-2.9); LYMPHOCYTES % 27.9 % (15.0-51.0); MEAN CORPUSCULAR HEMOGLOBIN 30.4 pg (29.0-33.0); MEAN CORPUSCULAR HGB CONC 32.9 g/dl (32.0-37.0); MEAN CORPUSCULAR VOLUME 92.3 fl (82.0-101.0); MEAN PLATELET VOLUME 10.1 fl (7.4-10.4); MONOCYTE # 0.5 10^3/ul (0.3-0.9); MONOCYTES % 7.3 % (0.0-11.0); NEUTROPHIL # 4.6 10^3/ul (1.6-7.5); NEUTROPHILS % 61.4 % (39.0-77.0); PLATELET COUNT 272 10^3/UL (140-415); RED BLOOD COUNT 4.44 10^6/ul (4.70-6.10); RED CELL DISTRIBUTION WIDTH 13.5 % (11.5-14.5)
[2019-06-12 06:39] LABS: WHITE BLOOD COUNT 7.4 10^3/ul (4.8-10.8)
[2019-06-12 07:11] LABS: ALANINE AMINOTRANSFERASE 29 IU/L (13-69); ALBUMIN 4.6 g/dl (3.3-4.9); ALBUMIN/GLOBULIN RATIO 1.39; ALKALINE PHOSPHATASE 66 IU/L (42-121); ANION GAP 12 (5-13); ASPARTATE AMINO TRANSFERASE 28 IU/L (15-46); BILIRUBIN,INDIRECT 0.5 mg/dl (0-1.1); BILIRUBIN,TOTAL 0.5 mg/dl (0.2-1.3); BLOOD UREA NITROGEN 13 mg/dl (7-20); CALCIUM 10.2 mg/dl (8.4-10.2); CARBON DIOXIDE 24 mmol/L (21-31); CHLORIDE 103 mmol/L (97-110); CREATININE 0.82 mg/dl (0.61-1.24); Estimated GFR > 60 mL/min (>60); GLUCOSE 135 mg/dl (70-220); POTASSIUM 4.1 mmol/L (3.5-5.1); SODIUM 139 mmol/L (135-144); TOTAL PROTEIN 7.9 g/dl (6.1-8.1)
[2019-06-12] MEDS: AMLODIPINE 10 MG TAB PO (08:28)
[2019-06-12] MEDS: ASCORBIC ACID 500 MG TAB PO (08:29)
[2019-06-12] MEDS: FENOFIBRATE 145 MG TAB PO (08:30)
[2019-06-12] MEDS: HYDROCODONE/APAP (5/325) TAB PO (08:31)
[2019-06-12] MEDS: DOCUSATE SODIUM 100 MG CAP PO ×2 (09:00→20:04)
[2019-06-12] MEDS: BETAMETHASONE/CLOTRIMAZOLE 15 GM CR TOP ×2 (09:30→20:04)
[2019-06-12] MEDS: CIPROFLOXACIN 500 MG TAB PO (17:41)
[2019-06-12] MEDS: ATORVASTATIN 40 MG TAB PO (20:04)
[2019-06-12] MEDS: SENNA TAB PO (20:04)
[2019-06-13] MEDS: CIPROFLOXACIN 500 MG TAB PO ×2 (06:30→18:16)
[2019-06-13] MEDS: PANTOPRAZOLE (EC) 40 MG TAB PO (06:30)
[2019-06-13] MEDS: FENOFIBRATE 145 MG TAB PO (10:10)
[2019-06-13] MEDS: BETAMETHASONE/CLOTRIMAZOLE 15 GM CR TOP ×2 (10:10→21:49)
[2019-06-13] MEDS: ASCORBIC ACID 500 MG TAB PO (10:10)
[2019-06-13] MEDS: DOCUSATE SODIUM 100 MG CAP PO ×2 (10:10→21:48)
[2019-06-13] MEDS: LACTULOSE 30ML CUP PO (10:12)
[2019-06-13] MEDS: AMLODIPINE 10 MG TAB PO (10:12)
[2019-06-13] MEDS ORDERED: PERMETHRIN 5% 60 GM CR TOP (14:00)
[2019-06-13] MEDS ORDERED: DIPHENHYDRAMINE 50 MG INJ IV (14:30)
[2019-06-13] MEDS: HYDROCORTISONE 1% 28 GM CR TOP ×2 (16:19→21:50)
[2019-06-13] MEDS: DIPHENHYDRAMINE 1%/ZINC 28.3 GM CR TOP ×2 (16:19→21:49)
[2019-06-13] MEDS: ATORVASTATIN 40 MG TAB PO (21:48)
[2019-06-13] MEDS: SENNA TAB PO (21:48)
[2019-06-13] MEDS: PERMETHRIN 5% 60 GM CR TOP (21:49)
[2019-06-13] MEDS: MUPIROCIN 2% 22 GM OINT TOP (21:49)
[2019-06-14] MEDS: PANTOPRAZOLE (EC) 40 MG TAB PO (06:37)
[2019-06-14] MEDS: CIPROFLOXACIN 500 MG TAB PO (06:37)
[2019-06-14] MEDS: ASCORBIC ACID 500 MG TAB PO (10:08)
[2019-06-14] MEDS: DOCUSATE SODIUM 100 MG CAP PO ×2 (10:08→21:05)
[2019-06-14] MEDS: BETAMETHASONE/CLOTRIMAZOLE 15 GM CR TOP ×2 (10:09→21:07)
[2019-06-14] MEDS: AMLODIPINE 10 MG TAB PO (10:09)
[2019-06-14] MEDS: FENOFIBRATE 145 MG TAB PO (10:09)
[2019-06-14] MEDS: MUPIROCIN 2% 22 GM OINT TOP ×2 (10:10→21:07)
[2019-06-14] MEDS: HYDROCORTISONE 1% 28 GM CR TOP ×2 (10:10→21:06)
[2019-06-14] MEDS: DIPHENHYDRAMINE 1%/ZINC 28.3 GM CR TOP ×2 (10:11→21:06)
[2019-06-14] MEDS: MEROPENEM 1 GM/50ML(PMX) 50 ML IVPB ×2 (14:17→21:06)
[2019-06-14] MEDS: ATORVASTATIN 40 MG TAB PO (21:05)
[2019-06-14] MEDS: SENNA TAB PO (21:05)
[2019-06-15] MEDS: PANTOPRAZOLE (EC) 40 MG TAB PO (06:23)
[2019-06-15] MEDS: MEROPENEM 1 GM/50ML(PMX) 50 ML IVPB ×3 (06:23→21:01)
[2019-06-15] MEDS: DIPHENHYDRAMINE 1%/ZINC 28.3 GM CR TOP ×2 (08:55→20:56)
[2019-06-15] MEDS: HYDROCORTISONE 1% 28 GM CR TOP ×2 (08:56→20:55)
[2019-06-15] MEDS: BETAMETHASONE/CLOTRIMAZOLE 15 GM CR TOP ×2 (08:57→20:56)
[2019-06-15] MEDS: FENOFIBRATE 145 MG TAB PO (08:59)
[2019-06-15] MEDS: MUPIROCIN 2% 22 GM OINT TOP ×2 (08:59→20:55)
[2019-06-15] MEDS: ASCORBIC ACID 500 MG TAB PO (08:59)
[2019-06-15] MEDS: AMLODIPINE 10 MG TAB PO (09:00)
[2019-06-15] MEDS: DOCUSATE SODIUM 100 MG CAP PO ×2 (09:00→20:53)
[2019-06-15] MEDS: ATORVASTATIN 40 MG TAB PO (20:52)
[2019-06-15] MEDS: SENNA TAB PO (20:53)
[2019-06-16] MEDS: MEROPENEM 1 GM/50ML(PMX) 50 ML IVPB ×3 (06:18→21:22)
[2019-06-16] MEDS: PANTOPRAZOLE (EC) 40 MG TAB PO (06:28)
[2019-06-16] MEDS: AMLODIPINE 10 MG TAB PO (09:01)
[2019-06-16] MEDS: FENOFIBRATE 145 MG TAB PO (09:01)
[2019-06-16] MEDS: DOCUSATE SODIUM 100 MG CAP PO ×2 (09:01→21:00)
[2019-06-16] MEDS: ASCORBIC ACID 500 MG TAB PO (09:01)
[2019-06-16] MEDS: HYDROCORTISONE 1% 28 GM CR TOP ×2 (09:06→21:21)
[2019-06-16] MEDS: MUPIROCIN 2% 22 GM OINT TOP ×2 (09:06→21:16)
[2019-06-16] MEDS: DIPHENHYDRAMINE 1%/ZINC 28.3 GM CR TOP ×2 (09:06→21:19)
[2019-06-16] MEDS: BETAMETHASONE/CLOTRIMAZOLE 15 GM CR TOP ×2 (09:07→21:21)
[2019-06-16] MEDS: SENNA TAB PO (21:00)
[2019-06-16] MEDS: ATORVASTATIN 40 MG TAB PO (21:14)
[2019-06-17] MEDS: MEROPENEM 1 GM/50ML(PMX) 50 ML IVPB ×2 (05:38→13:04)
[2019-06-17] MEDS: PANTOPRAZOLE (EC) 40 MG TAB PO (06:00)
[2019-06-17] MEDS: DOCUSATE SODIUM 100 MG CAP PO (09:00)
[2019-06-17] MEDS: ASCORBIC ACID 500 MG TAB PO (09:25)
[2019-06-17] MEDS: FENOFIBRATE 145 MG TAB PO (09:25)
[2019-06-17] MEDS: AMLODIPINE 10 MG TAB PO (09:25)
[2019-06-17] MEDS: HYDROCORTISONE 1% 28 GM CR TOP (09:26)
[2019-06-17] MEDS: MUPIROCIN 2% 22 GM OINT TOP (09:26)
[2019-06-17] MEDS: BETAMETHASONE/CLOTRIMAZOLE 15 GM CR TOP (09:27)
[2019-06-17] MEDS: DIPHENHYDRAMINE 1%/ZINC 28.3 GM CR TOP (09:27)
== END 2019-06-17 16:34 | disposition home health service (06) | DRG 57 ==
LOC: VRC 22:38
DX: I69.351 Hemiplegia and hemiparesis following cerebral infarction affecting right dominant side (principal); N39.0 Urinary tract infection, site not specified; I69.391 Dysphagia following cerebral infarction; R13.12 Dysphagia, oropharyngeal phase; R73.03 Prediabetes; R73.9 Hyperglycemia, unspecified; I10 Essential (primary) hypertension; Z74.09 Other reduced mobility; E78.5 Hyperlipidemia, unspecified; I69.390 Apraxia following cerebral infarction; L30.9 Dermatitis, unspecified; Z22.322 Carrier or suspected carrier of Methicillin resistant Staphylococcus aureus
CPT/HCPCS: 80053; 81001; 85025; 87081; 87086; 92507; 92523; 97110; 97112; 97116; 97163; 97166; 97530; 97535